=== PATIENT | male | born 1970 | race African-American/Black ===

== ENCOUNTER 2024-02-04 13:41 | Outpatient (CLI) | payer OTHER ==
[~2024-02-04 13:41] MED LIST: Iopamidol 370 76% 100 ML VIAL ONE
== END 2024-02-04 13:42 | disposition home or self-care (01) ==
LOC: CT 13:41
PROVIDERS: ATTEND Thoracic Surgery (Cardiothoracic Vascular Surgery)
DX: I71.20 Thoracic aortic aneurysm, without rupture, unspecified (principal); Q61.4 Renal dysplasia; I77.810 Thoracic aortic ectasia; I70.0 Atherosclerosis of aorta
CPT/HCPCS: 71275; 74174